=== PATIENT | female | born 1985 | race Caucasian/White ===

== ENCOUNTER → 2018-11-25 | Outpatient (CLI) | payer OTHER ==
[~2018-11-25] MED LIST: MOTR200T44 PO; TYLE325T5 PO
== END ==
LOC: M SMT 10:18
PROVIDERS: ATTEND Obstetrics & Gynecology
DX: N91.0 Primary amenorrhea (principal)

== ENCOUNTER → 2018-11-27 | Outpatient (CLI) | payer OTHER | LOC: M WUC 10:23 | PROVIDERS: ATTEND Obstetrics & Gynecology | DX: N91.0 Primary amenorrhea (principal) ==

== ENCOUNTER → 2018-12-08 | Outpatient (CLI) | payer OTHER | LOC: M SMT 10:27 | PROVIDERS: ATTEND Obstetrics & Gynecology | DX: O02.1 Missed abortion (principal) ==

== ENCOUNTER → 2019-04-21 | Outpatient (CLI) | payer OTHER | LOC: M WUC 14:07 | PROVIDERS: ATTEND Obstetrics & Gynecology | DX: N91.2 Amenorrhea, unspecified (principal) ==

== ENCOUNTER → 2019-04-23 | Outpatient (CLI) | payer OTHER | LOC: M WUC 14:11 | PROVIDERS: ATTEND Obstetrics & Gynecology | DX: N91.2 Amenorrhea, unspecified (principal) ==